=== PATIENT | female | born 2000 | race Caucasian/White ===

== ENCOUNTER 2024-10-10 15:53 | Emergency (ER) | payer OTHER, SELFPAY ==
[2024-10-10 15:54] VITALS: BP 111/76; PULSE 71; RESP 16; TEMP 36.9; O2SAT 98
--- NOTE | 2024-10-10 16:02 | ED.DENTAL ---
HPI - Dental/Oral General Chief complaint: Dental/Oral Stated complaint: left side mouth pain Time Seen by Provider: 10/10/24 16:01 Source: patient History of Present Illness HPI Narrative: left lower wisdom tooth pain started few days ago was seen by her family physician today and started on clindamycin, patient came to the ED for pain medication. She denies any fever, chills, nausea, vomiting, trouble swallowing or breathing. Related Data Home Medications ?Medication ?Instructions ?Recorded ?Confirmed ?Last Taken ?Type clindamycin HCl 300 mg capsule mg 10/10/24 Unknown History Allergies Allergy/AdvReac Type Severity Reaction Status Date / Time Cephalosporins Allergy Hives Verified 10/10/24 16:07 Review of Systems Review of Systems: All systems reviewed & are unremarkable except as noted in HPI and below PMFSH Past Medical History Medical History Bipolar 1 disorder Exam Narrative: General appearance: Well-developed, well-nourished Skin: Normal color Head: Normocephalic, nontraumatic Eyes: Clear conjunctiva ENT: Oropharynx normal, ears normal, nose normal , left lower wisdom tooth showing caries and swelling gum, no abscess formation Neck: Supple, nontender Neurologic: Alert and oriented ?3, OPER[employer] is normal as tested, no gross motor deficit Course Vital Signs Vital signs: Vital Signs Temperature 36.9 C 10/10/24 15:54 Pulse Rate 71 10/10/24 15:54 Respiratory Rate 16 10/10/24 15:54 Blood Pressure 111/76 10/10/24 15:54 Pulse Oximetry 98 10/10/24 15:54 Oxygen Delivery Room Air 10/10/24 15:54 Temperature 36.9 C 10/10/24 15:54 Pulse Rate 71 10/10/24 15:54 Respiratory Rate 16 10/10/24 15:54 Blood Pressure 111/76 10/10/24 15:54 Pulse Oximetry 98 10/10/24 15:54 Oxygen Delivery Room Air 10/10/24 15:54 MDM - Dental/Oral MDM Narrative Medical decision making narrative: dental caries Critical Care Time Critical Care Time Critical Care Time: No Discharge Plan Discharge Clinical Impression: Dental caries Patient Disposition: Home, Self-Care Condition: Stable Instructions: Toothache (ED) Additional Instructions: Return if symptoms are worsening , call your family physician for appointment, take Tylenol, ibuprofen 800 every 8 hours as as needed for aches and pain, continue home medications. Patient Language: South African Prescriptions: New ibuprofen [IBU] 800 mg tablet 800 mg PO TID Qty: 20 0RF ibuprofen [IBU] 800 mg tablet 800 mg PO TID Qty: 20 0RF No Action clindamycin HCl 300 mg capsule Follow-up/Referrals: Elie Fiore M.D. [Primary Care Provider] - Stand Alone Forms: Work/School Release IP
[2024-10-10] MEDS: IBUPROFEN 400 MG TABLET 800 MG PO (16:13)
[2024-10-10] MEDS: HYDROcodone/acetaminophen (*CRX) 5-325 MG TABLET 1 TAB PO (16:13)
--- OUTSIDE RECORDS SUMMARY | 2024-10-10 16:20 | XMS_ITS | Clinical Summary ---
Author Organization [facility] Address [facility] [place] [address] Care Team Providers Care Cover Cutter Machine Name Role Phone Elie Fiore MD Primary Care Provider Allergies Active Allergy Reactions Criticality Noted Date Comments Cefuroxime Unknown 02/01/2021 Lamotrigine Unknown 02/01/2021 Medications pantoprazole EC (PROTONIX) 40 MG tablet Take 1 tablet (40 mg total) by mouth daily. 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 Gender Identity Not on file Sexual Orientation Not on file Last Filed Vital Signs Vital Sign Reading Time Taken Comments Blood Pressure 96/67 06/19/2024 7:09 PM CDT Pulse 74 06/19/2024 7:09 PM CDT Temperature 35.9 C (96.7 F) 06/19/2024 7:09 PM CDT Respiratory Rate 16 06/19/2024 7:09 PM CDT Oxygen Saturation 98% 06/19/2024 7:09 PM CDT Inhaled Oxygen Concentration - - Weight 51.1 kg (112 lb 9.6 oz) 06/19/2024 7:09 P M CDT Height 170.2 cm (5' 7 ) 06/19/2024 7:09 PM CDT Body Mass Index 17.64 06/19/2024 7:09 PM CDT Plan of Treatment Health Maintenance Due Date Last Done Comments Cervical Cancer Screening Pap Smear (Age 21 to 29) Every 3 Years 2001 Cervical Cancer Screening 2001 Annual Physical 2004 Pneumococcal Vaccine: Pediatrics (0 to 5 Years) and At-Risk Patients (6 to 64 Years) (1 of 2 - PCV) 2007 DTaP, Tdap and Td Vaccines (6 - Tdap) 2012 12/19/2005, 06/04/2002, 2001, Additional history exists Hepatitis C 2019 Hepatitis B Vaccines (1 of 3 - 19+ 3-dose series) 2020 COVID-19 Vaccine ( - season) 2024 Influenza Adult (#1) 2024 HPV Vaccines Completed 10/22/2012, 05/28, 04/23/2012 Meningococcal Vaccine Completed 04/14/2019, 013 Meningococcal B Vaccine Completed 05/29/2019, 04/14 RSV Immunizations Under 20 Months Aged Out No longer eligible based on patient's age to complete this topic Insurance [facility] Care Teams Cover Cutter Machine Relationship Specialty Start Date End Date Elie Fiore MD [address] [place] [address] PCP - General FAMILY PRACTICE 11/27/19
--- OUTSIDE RECORDS SUMMARY | 2024-10-10 16:20 | XMS_ITS | Encounter Summary ---
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
== END 2024-10-10 16:27 | disposition home or self-care (01) ==
LOC: CHSED 16:19
PROVIDERS: Emergency Provider Emergency Medicine; PCP Family Medicine
DX: K02.9 Dental caries, unspecified (principal)
CPT/HCPCS: 99283; A9270